=== PATIENT | male | born 1950 | race Caucasian/White ===

== ENCOUNTER 2022-05-08 03:46 | Emergency (ER) | payer OTHER ==
--- OUTSIDE RECORDS SUMMARY | 2022-05-08 03:49 | XMS REPORT | Continuity of Care Document ---
:1950 Author Organization [facility] t Address [address] [place] [address] Care Team Providers Name Role Phone Carlos Rosa Attending Clinician Unavailable Physician, No Primary or Family Admitting Clinician Unavaila ble Carlos Rosa Admitting Clinician Unavailable Payers Payer Name Policy Type Policy Number Effective Date Expiration Date S ource Problems This patient has no known problems. Allergies, Adverse Reactions, Alerts This patient has no known allergies or adverse reactions. Medications This patient has no known medications. Procedures This patient has no known procedures. Encounters Start End Encounter Admission Attending Care Care Encounter Source Date/Time Date/Time Type Type Clinicians Facility Department ID 2022-01-31 2022-01-31 Outpatient [facility] [id number] [facility] 09:31:00 09:31:00 r, Amir [id number] [facility] 2022-01-31 2022-01-31 Outpatient [facility] [id number] [facility] 09:31:00 09:31:00 r, Amir 05 [facility] Results This patient has no known results.
[2022-05-08] MEDS ORDERED: MORPHINE 4 MG/ML SYR ONE (04:23)
[2022-05-08] MEDS ORDERED: NA CHLORIDE 0.9% 500 ML ONE (04:23)
[2022-05-08] MEDS ORDERED: ONDANSETRON 4 MG/2 ML VIAL ONE (04:23)
[2022-05-08 04:29] LABS: Absolute Lymphocytes (CBC) 1.4 K/uL (0.7-4.9); Hematocrit 42.6 % (39.6-49.0); Lymphocytes % 23.6 % (15.3-44.8); RBC Red Blood Cell Count 4.84 M/uL (4.33-5.43)
[2022-05-08 04:32] LABS: Protime INR 0.89
[2022-05-08 04:43] LABS: Potassium 4.1 mmol/L (3.5-5.1)
[2022-05-08] MEDS ORDERED: HYDROMORPHONE HCL 0.5 MG/0.5 ML INJ ONE (05:07)
[2022-05-08] MEDS ORDERED: METOCLOPRAMIDE 10 MG/2mL INJ ONE (05:44)
[2022-05-08] MEDS ORDERED: dexAMETHasone 10 MG/ML VIAL ONE (05:45)
[2022-05-08] MEDS ORDERED: HYDROMORPHONE HCL 1 MG/ML INJ ONE (06:27)
[2022-05-08] MEDS ORDERED: KETOROLAC 30 MG/ML INJ ONE (06:42)
[2022-05-08 10:01] VITALS: TEMP 97.9
[2022-05-08 10:14] VITALS: BP 133/83; O2SAT 93
--- NOTE | 2022-05-08 10:46 | ER ---
Nurse's Notes [facility] Name: Prashant Birmingham Age: 71 yrs Sex: Male : 1950 Arrival Date: 05/08/2022 Time: 03:51 Bed 23 Private MD: Diagnosis: Headache Presentation: 05/08 04:02 Chief complaint: Patient states: "I have a sharp pressure that started behind my right jb4 ear radiating in between my shoulders. It started about 0230.". Coronavirus screen: At this time, the client does not indicate any symptoms associated with coronavirus-19. Ebola Screen: No symptoms or risks identified at this time. Initial Sepsis Screen: Does the patient meet any 2 criteria? No. Patient's initial sepsis screen is negative. Does the patient have a suspected source of infection? No. Patient's initial sepsis screen is negative. Risk Assessment: Do you want to hurt yourself or someone else? Patient reports no desire to harm self or others. Onset of symptoms was May 08, 2022. Transition of care: patient was not received from another setting of care. 04:02 Method Of Arrival: Ambulatory jb4 04:02 Acuity: MADELAINE 3 jb4 Historical: - Allergies: 04:04 No Known Allergies; jb4 - PMHx: 04:04 [place]; Hypothyroidism; jb4 - PSHx: 04:04 heart stents; jb4 - Immunization history:: Adult Immunizations not up to date. - Social history:: Smoking status: Patient denies any tobacco usage or history of. - Family history:: not pertinent. - Hospitalizations: : No recent hospitalization is reported. Screenin:10 Abuse screen: Denies threats or abuse. Nutritional screening: No deficits noted. jb4 Tuberculosis screening: No symptoms or risk factors identified. Fall Risk None identified. Assessment: 04:10 General: Appears in no apparent distress. uncomfortable, Behavior is calm, cooperative, jb4 appropriate for age. Pain: Complains of pain in right base of the skull Pain radiates to thoracic area Pain currently is 8 out of 10 on a pain scale. Neuro: Level of Consciousness is awake, alert, obeys commands, Oriented to person, place, time, situation, Estimator And Drafter Supervisor are equal bilaterally Moves all extremities. Full function Gait is steady, Speech is normal, Facial symmetry appears normal, Pupils are PERRLA, Intact. Cardiovascular: Patient's skin is warm and dry. Respiratory: Airway is patent Respiratory effort is even, unlabored, Respiratory pattern is regular, symmetrical. Derm: Skin is intact, Skin is pink, warm \\T\\ dry. Musculoskeletal: Circulation, motion, and sensation intact. Range of motion: intact in all extremities. 05:00 Reassessment: Patient appears in no apparent distress at this time. Patient and/or jb4 family updated on plan of care and expected duration. Pain level reassessed. Patient is alert, oriented x 3, equal unlabored respirations, skin warm/dry/pink. Pt reports no change in severity of pain. Provider notified, see MAR for orders. 06:00 Reassessment: Patient appears in no apparent distress at this time. Patient and/or jb4 family updated on plan of care and expected duration. Pain level reassessed. Patient is alert, oriented x 3, equal unlabored respirations, skin warm/dry/pink. 07:08 Reassessment: Patient appears in no apparent distress at this time. Patient and/or jb4 family updated on plan of care and expected duration. Pain level reassessed. Patient is alert, oriented x 3, equal unlabored respirations, skin warm/dry/pink. Vital Signs: 04:02 BP 160 / 103; Pulse 69; Resp 16; Temp 97.9(O); Pulse Ox 98% on R/A; Weight 135.17 kg jb4 (R); Height 6 ft. 4 in. (193.04 cm) (R); Pain 8/10; 05:00 BP 151 / 91; Pulse 64; Resp 16; Pulse Ox 94% on R/A; jb4 06:30 BP 128 / 89; Pulse 64; Resp 16; Pulse Ox 92% on R/A; jb4 07:00 BP 133 / 83; Pulse 61; Resp 16; Pulse Ox 93% on R/A; jb4 04:02 Body Mass Index 36.27 (135.17 kg, 193.04 cm) jb4 [place] Coma Score: 06:25 Eye Response: spontaneous(4). Verbal Response: oriented(5). Motor Response: obeys rn commands(6). Total: 15. ED Course: 03:51 Patient arrived in ED. ja2 03:54 Sabino Garsia MD is Attending Physician. rn 04:03 Triage completed. jb4 04:04 Arm band placed on right wrist. jb4 04:10 Patient has correct armband on for positive identification. Bed in low position. Call jb4 light in reach. Side rails up X 1. Client placed on continuous cardiac and pulse oximetry monitoring. NIBP monitoring applied. 04:45 Head angio In Process Unspecified. EDMS 04:45 Neck Angio In Process Unspecified. EDMS 04:45 Head Brain Wo Cont In Process Unspecified. EDMS 05:01 James Duffy RN is Primary Nurse. jb4 06:49 Kiko Avalos MD is Referral Physician. rn 07:10 No provider procedures requiring assistance completed. IV discontinued, intact, jb4 bleeding controlled, No redness/swelling at site. Pressure dressing applied. Administered Medications: 04:21 Drug: morphine 4 mg Route: IVP; Infused Over: 4 mins; Site: right antecubital; jb4 05:00 Follow up: Response: No adverse reaction jb4 04:21 Drug: Zofran (Ondansetron) 4 mg Route: IVP; Site: right antecubital; jb4 05:00 Follow up: Response: No adverse reaction jb4 04:40 Drug: NS 0.9% 500 ml Route: IV; Rate: bolus; Site: right forearm; jb4 05:15 Follow up: Response: No adverse reaction; IV Status: Completed infusion jb4 05:01 Drug: Dilaudid (HYDROmorphone) 0.5 mg Route: IVP; Site: right forearm; jb4 05:30 Follow up: Response: No adverse reaction; No change in condition jb4 05:40 Drug: Decadron - Dexamethasone 10 mg Route: IVP; Site: right antecubital; sm5 07:10 Follow up: Response: No adverse reaction; Marked relief of symptoms jb4 05:40 Drug: Reglan (metoCLOPramide) 10 mg Route: IVP; Site: right antecubital; sm5 07:10 Follow up: Response: No adverse reaction; Marked relief of symptoms jb4 06:31 Drug: Dilaudid (HYDROmorphone) 1 mg Route: IVP; Site: right forearm; jb4 07:10 Follow up: Response: No adverse reaction; Marked relief of symptoms jb4 06:35 Drug: Ketorolac 15 mg Route: IVP; Site: right forearm; jb4 07:10 Follow up: Response: No adverse reaction; Marked relief of symptoms jb4 Outcome: 06:49 Discharge ordered by . rn 07:10 Discharged to home ambulatory. jb4 07:10 Condition: stable 07:10 Discharge instructions given to patient, Instructed on discharge instructions, follow up and referral plans. medication usage, Demonstrated understanding of instructions, follow-up care, medications, Prescriptions given X 2. 07:13 Patient left the ED. jb4 Signatures: Dispatcher [employer] EDMS Sabino Garsia MD MD rn Bryson, James, RN RN jb4 Franca Arroyo Sarah, RN RN sm5 Corrections: (The following items were deleted from the chart) 07:13 04:10 No provider procedures requiring assistance completed. jb4 jb4 07:13 04:10 IV discontinued, intact, bleeding controlled, No redness/swelling at site. jb4 Pressure dressing applied, jb4
--- NOTE | 2022-05-08 10:47 | EDPHYS ---
Physician Documentation [facility] Name: Prashant Birmingham Age: 71 yrs Sex: Male : 1950 Arrival Date: 05/08/2022 Time: 03:51 Bed 23 Private MD: ED Physician Sabino Garsia HPI: 05/08 04:03 This 71 yrs old Male presents to ER via Unassigned with complaints of Headache. rn 04:03 The patient complains of pain to the right base of the skull. The patient describes the rn headache as aching. Onset: The symptoms/episode began/occurred 1.5 hour(s) ago. Associated signs and symptoms: Pertinent negatives: altered mental status, fever, paresthesias, Photophobia rash, vision changes, vision loss, vomiting, weakness, vertigo. Severity of symptoms: At its worst the pain was a " 8" out of "10". Headache History: The patient has had previous headaches and this one is more severe than previous episodes. The symptoms are alleviated by nothing. the symptoms are aggravated by movement, palpation. The patient has not experienced similar symptoms in the past. The patient has not recently seen a physician. Denies injury, reports pain 8/10, at right base of skull, no fever, no focal neuro complaints. NO chest pain or back pain.. Historical: - Allergies: 04:04 No Known Allergies; jb4 - PMHx: 04:04 [place]; Hypothyroidism; jb4 - PSHx: 04:04 heart stents; jb4 - Immunization history:: Adult Immunizations not up to date. - Social history:: Smoking status: Patient denies any tobacco usage or history of. - Family history:: not pertinent. - Hospitalizations: : No recent hospitalization is reported. ROS: 04:03 Constitutional: Negative for fever, chills, and weight loss, Eyes: Negative for injury, rn pain, redness, and discharge, Neck: Negative for injury, and swelling Cardiovascular: Negative for chest pain, palpitations, and edema, Respiratory: Negative for shortness of breath, cough, wheezing, and pleuritic chest pain, Abdomen/GI: Negative for abdominal pain, nausea, vomiting, diarrhea, and constipation, Back: Negative for injury and pain, MS/Extremity: Negative for injury and deformity, Skin: Negative for injury, rash, and discoloration, Neuro: Negative for weakness, numbness, tingling, and seizure. Exam: 04:03 Constitutional: This is a well developed, well nourished patient who is awake, alert, rn appears uncomfortable holding right back of head. Head/Face: Normocephalic, atraumatic. Eyes: Periorbital areas with no swelling, redness, or edema. Neck: Trachea midline, no masses palpated. Supple, full range of motion without nuchal rigidity, or vertebral point tenderness. No Meningismus. Cardiovascular: Regular rate and rhythm. No pulse deficits. Respiratory: No increased work of breathing, no retractions or nasal flaring. Abdomen/GI: Soft, non-tender Skin: Warm, dry MS/ Extremity: Pulses equal, no cyanosis. Neurovascular intact. Full, normal range of motion. Equal circumference. Neuro: Awake and alert, GCS 15, oriented to person, place, time, and situation. Cranial nerves II-XII grossly intact. Motor strength 5/5 in all extremities. Sensory grossly intact. Cerebellar exam normal. Vital Signs: 04:02 BP 160 / 103; Pulse 69; Resp 16; Temp 97.9(O); Pulse Ox 98% on R/A; Weight 135.17 kg jb4 (R); Height 6 ft. 4 in. (193.04 cm) (R); Pain 8/10; 05:00 BP 151 / 91; Pulse 64; Resp 16; Pulse Ox 94% on R/A; jb4 06:30 BP 128 / 89; Pulse 64; Resp 16; Pulse Ox 92% on R/A; jb4 07:00 BP 133 / 83; Pulse 61; Resp 16; Pulse Ox 93% on R/A; jb4 04:02 Body Mass Index 36.27 (135.17 kg, 193.04 cm) jb4 [place] Coma Score: 06:25 Eye Response: spontaneous(4). Verbal Response: oriented(5). Motor Response: obeys rn commands(6). Total: 15. MDM: 03:54 Patient medically screened. rn 06:25 Differential diagnosis: hypertensive headache, intracerebral hemorrhage, migraine, rn neoplasm, subarachnoid bleed, tension headache, trigeminal neuralgia, vasomotor headache. Data reviewed: vital signs, nurses notes, lab test result(s), radiologic studies, CT scan, and as a result, I will continue to observe the patient. Counseling: I had a detailed discussion with the patient and/or guardian regarding: the historical points, exam findings, and any diagnostic results supporting the discharge/admit diagnosis, lab results, radiology results, the need for outpatient follow up, to return to the emergency department if symptoms worsen or persist or if there are any questions or concerns that arise at home. Response to treatment: the patient's symptoms have mildly improved after treatment. ED course: CT head without acute findings, CT angio head and neck without acute findings, afebrile, no trauma, normal neuro exam. Plan to control pain and dc home with neuro f/u and return precautions.. 06:48 ED course: Pt starting to improve, still normal neuro exam. CT angios performed within rn a couple of hours of onset of headache, effectively ruling out SAH. . 05/08 04:21 Order name: Basic Metabolic Panel; Complete Time: 04:47 EDMS 05/08 04:21 Order name: CBC with Automated Diff; Complete Time: 04:47 EDMS 05/08 04:00 Order name: CT Head Brain wo Cont rn 05/08 04:00 Order name: Neck Angio CT rn 05/08 04:00 Order name: Head Angio CT rn 05/08 04:05 Order name: Head angio EDMS 05/08 04:05 Order name: Neck Angio EDMS 05/08 04:21 Order name: Protime (+INR); Complete Time: 04:47 EDMS 05/08 04:21 Order name: PTT, Activated Partial Thromb; Complete Time: 04:47 EDMS 05/08 04:00 Order name: IV Start; Complete Time: 04:11 rn 05/08 04:08 Order name: Head Brain Wo Cont EDMS Administered Medications: 04:21 Drug: morphine 4 mg Route: IVP; Infused Over: 4 mins; Site: right antecubital; jb4 05:00 Follow up: Response: No adverse reaction jb4 04:21 Drug: Zofran (Ondansetron) 4 mg Route: IVP; Site: right antecubital; jb4 05:00 Follow up: Response: No adverse reaction jb4 04:40 Drug: NS 0.9% 500 ml Route: IV; Rate: bolus; Site: right forearm; jb4 05:15 Follow up: Response: No adverse reaction; IV Status: Completed infusion jb4 05:01 Drug: Dilaudid (HYDROmorphone) 0.5 mg Route: IVP; Site: right forearm; jb4 05:30 Follow up: Response: No adverse reaction; No change in condition jb4 05:40 Drug: Decadron - Dexamethasone 10 mg Route: IVP; Site: right antecubital; sm5 07:10 Follow up: Response: No adverse reaction; Marked relief of symptoms jb4 05:40 Drug: Reglan (metoCLOPramide) 10 mg Route: IVP; Site: right antecubital; sm5 07:10 Follow up: Response: No adverse reaction; Marked relief of symptoms jb4 06:31 Drug: Dilaudid (HYDROmorphone) 1 mg Route: IVP; Site: right forearm; jb4 07:10 Follow up: Response: No adverse reaction; Marked relief of symptoms jb4 06:35 Drug: Ketorolac 15 mg Route: IVP; Site: right forearm; jb4 07:10 Follow up: Response: No adverse reaction; Marked relief of symptoms jb4 Disposition Summary: 05/08/22 06:49 Discharge Ordered Location: Home rn Problem: new rn Symptoms: have improved rn Condition: Stable rn Diagnosis - Headache rn Followup: rn - With: Kiko Avalos MD - When: 1 - 2 days - Reason: Recheck today's complaints, Re-evaluation by your physician Discharge Instructions: - Discharge Summary Sheet rn - General Headache Without Cause rn - Hypertension, Adult rn Forms: - Medication Reconciliation Form rn - Thank You Letter rn - Antibiotic skein yarn dyer - Prescription Opioid Use rn Prescriptions: - Tramadol 50 mg Oral Tablet - take 1 tablet by ORAL route every 8 hours as needed; 12 tablet; Refills: 0, rn Product Selection Permitted - Cyclobenzaprine 5 mg Oral Tablet - take 1 tablet by ORAL route 3 times per day As needed; 12 tablet; Refills: 0, rn Product Selection Permitted Signatures: Dispatcher [employer] EDMS Sabino Garsia MD MD rn Bryson, James RN RN jb4 Lissy Lcakey RN RN sm5 Corrections: (The following items were deleted from the chart) 04:08 04:05 CT-HEAD/BRAIN W/O CONTRAST ordered. EDMS EDMS
--- NOTE | 2022-05-08 13:06 | RAD REPORT ---
EXAM DESCRIPTION: CT - Head angio - 05/08/2022 6:32 am CLINICAL HISTORY: 71 years Male headache. TECHNIQUE: Following dynamic intravenous nonionic contrast infusion, multiple axial helical CT image s with multiplanar reconstructions were obtained through the head and neck. Coronal and sagittal MIP images were performed. The CT study is performed according to ALARA (as low as reasonably achievable) or ALARA/IMAGE GENTLY, with automatic adjustment of mA and/or kV according to patient size. Performed on: 05/08/2022 at 4:33 AM COMPARISON: Head CT without contrast performed on 05/08/2022 at 4:30 AM FINDINGS: CTA NECK: AORTA: The aortic arch is well imaged and demonstrates a common origin of the left common carotid artery and right brachiocephalic artery, a normal developmental variant. Additionally, the left vertebral arter y arises directly from the aortic arch. The origins of the left subclavian artery, left vertebral art ayse, left common carotid artery and innominate artery are patent. Incidentally noted, there is an edgar rrant right subclavian artery. VERTEBRAL ARTERIES: The LEFT vertebral artery is normal in caliber and contour without evidence of dissection or signific ant stenosis. The RIGHT vertebral artery is normal in caliber and contour without evidence of dissection or signifi cant stenosis. CAROTID ARTERIES: The LEFT common carotid artery is unremarkable. There is no evidence of stenosis, dissection or occlu sandor The carotid bulb demonstrates no significant plaque. The LEFT internal carotid artery is frank l in caliber and contour without evidence of significant stenosis, dissection or occlusion. The LEFT external carotid artery is unremarkable. The RIGHT common carotid artery is unremarkable. There is no evidence of stenosis, dissection or occl usion. The carotid bulb demonstrates no significant plaque. The RIGHT internal carotid artery is un remarkable. There is no evidence of stenosis, dissection or occlusion. The RIGHT external carotid art ayse is unremarkable. CTA HEAD: LEFT: INTERNAL CAROTID ARTERY: The distal internal carotid artery is unremarkable. ANTERIOR CEREBRAL ARTERY: The A1 segment is normal in caliber and contour. The A2 segment is normal i n caliber and contour. The region of the anterior communicating artery is unremarkable. MIDDLE CEREBRAL ARTERY: The M1 segment is normal in caliber and contour. The M2 branches are normal i n caliber and contour. POSTERIOR CEREBRAL ARTERY: The P1 segment is normal in caliber and contour. The P2 segment is normal in caliber and contour. The left posterior communicating artery is hypoplastic. VERTEBRAL ARTERY: The intradural left vertebral artery is normal in caliber and contour. RIGHT: INTERNAL CAROTID ARTERY: The distal internal carotid artery is unremarkable. ANTERIOR CEREBRAL ARTERY: The A1 segment is normal in caliber and contour. The A2 segment is normal i n caliber and contour. MIDDLE CEREBRAL ARTERY: The M1 segment is normal in caliber and contour. The M2 branches are normal i n caliber and contour. POSTERIOR CEREBRAL ARTERY: The P1 segment is normal in caliber and contour. The P2 segment is normal in caliber and contour. The right posterior communicating artery is patent. VERTEBRAL ARTERY: The intradural right vertebral artery is normal in caliber and contour. BASILAR ARTERY: The basilar artery is normal in caliber and contour. DURAL VENOUS SINUSES: The dural venous sinuses are patent. NON-ANGIOGRAPHIC FINDINGS: The lung apices are clear. There is an aberrant right subclavian artery as noted above. The thyroid g land is small. There is straightening of the normal cervical lordosis which may be due to patient pos itioning or possibly muscle spasm. There are very mild degenerative changes of the cervical spine. Th ere is occasional periodontal disease. There is mild mucosal thickening of the right sphenoid sinus. The mastoid air cells and middle ear cavities are clear. The orbital contents are unremarkable. IMPRESSION: CTA NECK: 1. Normal CTA of the neck. There is no evidence of stenosis as per the NASCET criteria. 2. 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 3. The left vertebral artery arises directly from the aortic arch. 4. Aberrant right subclavian artery. CTA HEAD: 1. Normal intracranial CTA. There is no evidence of large vessel occlusion, significant stenosis, ane urysm or other vascular malformation. Electronically signed by: Brittany Delgadillo DO 05/08/2022 5:47 AM CDT Due to temporary technical issues with the PACS/Fluency reporting system, reports are being signed by the in house radiologists without review as a courtesy to insure prompt reporting. The interpreting radiologist is fully responsible for the content of the report.
--- NOTE | 2022-05-08 14:06 | RAD REPORT ---
EXAM DESCRIPTION: CT - Head Brain Wo Cont - 05/08/2022 6:30 am CLINICAL HISTORY: Headache COMPARISON: None. TECHNIQUE: Head/brain axial images acquired without contrast. Coronal and sagittal reformats created . Exam performed according to departmental dose-optimization program which includes automated exposur e control, adjustment of mA and/or kV according to patient size, and/or use of iterative reconstructi on technique. FINDINGS: No midline shift, mass effect, intracranial hemorrhage, or hydrocephalus. Brain parenchyma unremarkable. Paranasal sinuses clear. Mastoid air cells clear. No skull fracture or significant skull lesion. IMPRESSION: Unremarkable CT head/brain without contrast. Electronically signed by: Brandon Romeo MD 05/08/2022 5:13 AM CDT Due to temporary technical issues with the PACS/Fluency reporting system, reports are being signed by the in house radiologists without review as a courtesy to insure prompt reporting. The interpreting radiologist is fully responsible for the content of the report.
== END 2022-05-08 07:13 | disposition home or self-care (01) ==
LOC: ER 03:46
DX: R51.9 Headache, unspecified (principal); E03.9 Hypothyroidism, unspecified
CPT/HCPCS: 85025; 80048; 36415; 85610; 85730; 70450; 70496; 70498; Q9967; J2765; J1100; J1170 ×2; J7040; J2405; 99283